=== PATIENT | female | born 1990 | race African-American/Black ===

== ENCOUNTER 2021-10-26 16:58 | Observation (INO) ==
[2021-10-26] MEDS ORDERED: CHARCOAL AQUEOUS 25 GM/120 ML BOTTLE PO STA (17:22)
[2021-10-26] MEDS ORDERED: SODIUM CHLORIDE 0.9% 2,000 ML IV STA (17:36)
[2021-10-26] MEDS ORDERED: ONDANSETRON 4 MG/2 ML VIAL IV STA (17:36)
[2021-10-26 17:37] LABS: Basophils # 0.1 10*3/uL (0.0-0.2); Basophils % 1.3 % (0.0-0.8); Eosinophils # 0.4 10*3/uL (0.0-0.87); Eosinophils % 5.1 % (0.00-10.9); Hematocrit 38.3 VOL% (35.7-47.0); Immature Granulocytes % 0.2 %; Immature Granulocytes Absolute 0.02 #; Lymphocytes # 2.9 10*3/uL (1.4-4.0); Lymphocytes % 33.8 % (21.3-54.2); Mean Corpuscular HGB Conc 31.3 GM/DL (32-36); Mean Corpuscular Volume 69.4 FL (87-102); Mean Platelet Volume 9.9 FL (9.6-12.0); Monocytes # 0.8 10*3/uL (0.11-0.8); Monocytes % 9.8 % (1.7-12.7); Neutrophils % 49.8 % (38.7-73.9); Platelet Count 370 T/CUMM (130-400); Red Blood Count 5.52 MC/CUMM (3.8-5.5); White Blood Count 8.6 T/CUMM (4-12)
[2021-10-26 17:46] LABS: Alanine Aminotransferase 19 U/L (13-56); Albumin 4.5 G/DL (3.4-5.0); Alkaline Phosphatase 57 U/L (45-117); Aspartate Amino Transferase 12 U/L (0-37); Blood Urea Nitrogen 16 MG/DL (7-18); Calcium 9.6 MG/DL (8.5-10.1); Carbon Dioxide 21 MMOL/L (21-32); Chloride 104 MMOL/L (98-107); Glucose 102 MG/DL (74-106); Osmolality,Calculated 270.1 MOS/KG (273-304); Potassium 3.1 MMOL/L (3.5-5.1); Sodium 135 MMOL/L (136-145); Total Protein 9.6 G/DL (6.4-8.2)
[2021-10-26 17:57] LABS: Anisocytosis 1+; Elliptocytes Few; Hypochromia 1+; Platelet Estimate Adequate; Target Cells Few
[2021-10-26] MEDS ORDERED: PANTOPRAZOLE 40 MG VIAL IV STA (20:00)
[2021-10-26] MEDS ORDERED: LORazepam 2 MG/1 ML VIAL IV STA (20:07)
[2021-10-26] MEDS ORDERED: ONDANSETRON 4 MG/2 ML VIAL IV PRN (20:37)
[2021-10-26] MEDS ORDERED: ALBUTEROL 2.5 MG/3 ML NEB RESP TX PRN (20:37)
[2021-10-26] MEDS ORDERED: NICOTINE 21 MG/24 HR PATCH TRANSDERM PRN (20:37)
[2021-10-26] MEDS: SODIUM CHLORIDE 0.9% 1,000 ML IV SCH (21:47)
[2021-10-26 22:00] LABS: Hyaline Casts,Urine 1 /LPF (0-3); Mucus,Urine Occasional /LPF (Occasional); RBC,Urine <1 /HPF (0-4); Squamous Epithelial Cell,Urine Occasional /HPF (0-10)
[2021-10-26 22:01] LABS: Urine Appearance Clear (Clear); Urine Color Yellow (Yellow); Urine pH 5.5 (4.5-8.0)
[2021-10-26 22:02] LABS: Bilirubin,Urine Negative (Negative); Blood, Urine Trace mg/dL (Negative); Glucose,Urine (UA) Negative (Negative); Ketones,Urine Negative (Negative); Nitrite,Urine Negative (Negative); Protein,Urine Trace mg/dL (Negative); Urine Specific Gravity >= 1.030 (1.001-1.035); Urine Urobilinogen 0.2 eU/dL (<2.0)
[2021-10-26 22:14] LABS: Barbiturates Screen,Urine Negative (Negative); Benzodiazepines Screen,Urine Negative (Negative); Cannabinoid Screen,Urine Negative (Negative); Opiate Screen,Urine Negative (Negative); Phencyclidine Screen,Urine Negative (Negative)
[2021-10-27] MEDS: POTASSIUM CHLORIDE RIDER 10 MEQ/100 ML PREMIX IV PRN ×2 (04:31→05:39)
[2021-10-27 04:33] LABS: Basophils % 0.3 % (0.0-0.8); Eosinophils % 0.1 % (0.00-10.9); Hematocrit 33.6 VOL% (35.7-47.0); Hemoglobin 10.4 GM/DL (12.0-16.0); Immature Granulocytes % 0.3 %; Immature Granulocytes Absolute 0.04 #; Lymphocytes # 1.6 10*3/uL (1.4-4.0); Lymphocytes % 13.6 % (21.3-54.2); Mean Corpuscular Volume 70.1 FL (87-102); Mean Platelet Volume 10.2 FL (9.6-12.0); Monocytes # 0.7 10*3/uL (0.11-0.8); Monocytes % 6.1 % (1.7-12.7); Neutrophils % 79.6 % (38.7-73.9); Platelet Count 311 T/CUMM (130-400); Red Blood Count 4.79 MC/CUMM (3.8-5.5)
[2021-10-27 04:34] LABS: White Blood Count 11.9 T/CUMM (4-12)
[2021-10-27 04:45] LABS: Alanine Aminotransferase 16 U/L (13-56); Albumin 3.8 G/DL (3.4-5.0); Alkaline Phosphatase 45 U/L (45-117); Aspartate Amino Transferase 10 U/L (0-37); Bilirubin,Total < 0.39 MG/DL (0.20-1.00); Blood Urea Nitrogen 13 MG/DL (7-18); Calcium 8.9 MG/DL (8.5-10.1); Carbon Dioxide 20 MMOL/L (21-32); Chloride 111 MMOL/L (98-107); Glucose 104 MG/DL (74-106); Osmolality,Calculated 276.5 MOS/KG (273-304); Potassium 3.7 MMOL/L (3.5-5.1); Sodium 139 MMOL/L (136-145); Total Protein 7.8 G/DL (6.4-8.2)
[2021-10-27 04:48] LABS: Hypochromia 2+; Platelet Estimate Normal; Reactive Lymphocytes 1+; Target Cells 1+
[2021-10-27] MEDS: SODIUM CHLORIDE 0.9% 1,000 ML IV SCH ×3 (06:25→17:11)
[2021-10-27] MEDS ORDERED: CITALOPRAM 20 MG TABLET PO SCH (12:30)
[2021-10-27 15:28] VITALS: BP 149/107
[2021-10-27] MEDS ORDERED: amLODIPine 10 MG TABLET PO ONE (17:30)
[2021-10-27] MEDS ORDERED: hydroCHLOROthiazide 25 MG TABLET PO ONE (17:30)
[2021-10-27] MEDS ORDERED: PANTOPRAZOLE 40 MG VIAL IV SCH (21:00)
== END 2021-10-27 18:07 ==
LOC: EDUNIT# → EDBD → N.ED 16:58 → N.CC 20:37 → INTOOBSV 20:37 → SUATTDRO 20:37 → N.CC 10-27 02:22
PROVIDERS: ADMIT Internal Medicine; ATTEND Family Medicine